=== PATIENT | female | born 1995 | race Caucasian/White ===

== ENCOUNTER 2020-02-15 10:40 | Inpatient (IN) | payer OTHER, SELFPAY ==
[2020-02-15] VITALS (61 sets, daily range): BP systolic 98–139; BP diastolic 57–103; PULSE 62–149; RESP 16; TEMP 36.6–37.1; O2SAT 83–100; BMI 27.6
[2020-02-15] MEDS: AMPICILLIN 2 GM/NS 100 ML 2 GM/100 ML BAG IVPB (13:15)
[2020-02-15] MEDS: LACTATED RINGERS 1,000 ML 125 ML IV CONT ×2 (13:15→17:26)
[2020-02-15 14:39] LABS: Basophils Percent Auto 0.3 % (0.2-1.2); Eosinophils Percent Auto 0.2 % (0-4.4); Hemoglobin 11.8 g/dL (12.0-15.0); Immature Granulocyte Absolute 0.09 K/mm3 (0.00-0.031); Immature Granulocyte Percent A 0.8 % (0-0.5); Lymphocytes Absolute Auto 1.27 K/mm3 (0.9-3.2); Mean Corpuscular HGB Conc 33.7 g/dl (32-36); Mean Corpuscular Hemoglobin 31.9 pg (26-34); Mean Corpuscular Volume 94.6 fl (80-100); Mean Platelet Volume 11.3 fl (7.4-10.4); Monocytes Absolute Auto 0.7 K/mm3 (0.1-0.6); Monocytes Percent Auto 6.4 % (2.6-8.5); Neutrophils Absolute Auto 8.5 K/mm3 (1.3-6.7); Neutrophils Percent Auto 80.3 % (45.5-73.1); Platelet Count Result 189 k/mm3 (150-375); Red Cell Distribution Width 12.6 % (11.5-14.5); White Blood Count 10.6 K/mm3 (4.5-10.0)
--- NOTE | 2020-02-15 17:03 | WPDOBADMIT ---
Obstetrics - Admit Note Admission Note: record reviewed. No pertinent additions to the history and/or any subsequent changes in the physical findings that are not consistent with the expected course of the were found. Pt arrived in labor SVE 5.5/100/-0, AROM moderate amount of clear fluid Additions to the history and/or subsequent changes in the physical findings follow. None.
--- NOTE | 2020-02-15 17:22 | WPDANESEPPF ---
Anes - Initial Pre Proc Eval Procedure: labor epidural Date/Time: 02/15/20 17:22 Surgeon: Melanie Chapman MD Pre Op Diagnosis: labor pain Pre Op Diagnosis: contractions Patient Data Age: 24 Gender: F Height: 1.63 m Weight: 73 kg Last Vital Signs Temp 37.1 C 02/15/20 13:00 Pulse 93 02/15/20 17:21 BP 117/63 02/15/20 17:21 Pulse Ox 100 02/15/20 17:20 Allergies Allergy/AdvReac Type Severity Reaction Status Date / Time No Known Allergies Allergy Verified 02/01/20 13:28 Home Medications Medication Instructions Recorded Confirmed Type PNV cmb#95-ferrous fumarate-FA 1 tablet PO DAILY 02/01/20 02/01/20 History [] Laboratory Tests 02/15/20 02/15/20 02/15/20 13:30 13:30 13:30 WBC 10.6 K/mm3 H K/mm3 (4.5-10.0) RBC 3.70 M/mm3 L M/mm3 (4.2-5.4) Hgb 11.8 g/dL L g/dL (12.0-15.0) Hct 35.0 % L % (37.0-47.0) MCV 94.6 fl fl (80-100) MCH 31.9 pg pg (26-34) MCHC 33.7 g/dl g/dl (32-36) RDW 12.6 % % (11.5-14.5) Plt Count 189 k/mm3 k/mm3 (150-375) MPV 11.3 fl H fl (7.4-10.4) Immature Gran % (Auto) 0.8 % H % (0-0.5) Neut % (Auto) 80.3 % H % (45.5-73.1) Lymph % (Auto) 12.0 % L % (18.3-44.2) [place] % (Auto) 6.4 % % (2.6-8.5) Eos % (Auto) 0.2 % % (0-4.4) Baso % (Auto) 0.3 % % (0.2-1.2) Lymph # (Auto) 1.27 K/mm3 K/mm3 (0.9-3.2) [place] # (Auto) 0.7 K/mm3 H K/mm3 (0.1-0.6) Eos # (Auto) 0.0 K/mm3 K/mm3 (0-0.3) Baso # (Auto) 0.0 K/mm3 K/mm3 (0.0-0.1) Abs Immat Gran (auto) 0.09 K/mm3 H K/mm3 (0.00-0.031) Absolute Neuts (auto) 8.5 K/mm3 H K/mm3 (1.3-6.7) Absolute Nucleated RBC 0.0 K/mm3 K/mm3 (0.0-0.012) Nucleated RBC % 0.0 % % (0.0-0.2) RPR Pending Blood Type O Positive Antibody Screen Negative Patient hx anesthesia problems: none Family hx anesthesia problems: none [facility] Family History Family History Father Pancreas carcinoma Grandparent Pancreas carcinoma Mother Hypertension Social History Social History Smoking status: Never smoker Second hand tobacco smoke exposure: No Substance use: never Spiritual care concerns: No Anes - Eval Final PreProcedure Day of Procedure 02/15/20 17:22 Patient weight: normal Heart: regular rate and rhythm Lungs: clear to auscultation and normal air movement Airway: Mallampati scale Neurological: alert and oriented ASA classification: I Emergent: no Anesthetic plan: proceed Anesthesia type and monitoring: regional epidural and standard monitoring Informed Consent: The patient's anesthetic plan and its attendant risks and benefits were discussed with the patient/family/POA. Questions were solicited and answers provided to the satisfaction of the patient/family/POA.
[2020-02-15] MEDS: AMPICILLIN 1 GM/NS 50 ML 1 GM/50 ML BAG IVPB (17:26)
[2020-02-15] MEDS: OXYTOCIN 30 UNITS/NS 500 ML 30 UNITS/500 ML BAG 999 UNITS IV CONT (19:37)
--- NOTE | 2020-02-15 19:46 | PM.OBPRVD ---
OB - Delivery Note Procedure Delivery date: 02/15/20 Procedure: vaginal delivery Intrapartal events: None Delivery augmentation: rupture of membranes Delivery monitor: external FHT and external uterine Route of delivery: Laceration description: None Delivery repair: vicryl Specimen: No Estimated blood loss (mL): 80 Anesthesia type: Epidural Disposition: other () Baby Date of : 02/15/20 Time of : 19:33 Weeks of gestation at delivery: 37 Weight (pounds): 7 Weight (ounces): 10 presentation: vertex position: Left Occiput Anterior Placenta delivery description: Spontaneous cord vessel description: 3 Vessels score one minute: 8 score five minutes: 9 Narrative: mother and baby skin to skin
[2020-02-15] MEDS: IBUPROFEN 600 MG TABLET PO (20:22)
[2020-02-15] MEDS: OXYTOCIN 30 UNITS/NS 500 ML 30 UNITS/500 ML BAG 125 UNITS IV CONT (20:23)
[2020-02-15] MEDS: WITCH HAZEL 40 PADS 1 PAD TOPICAL (20:49)
[2020-02-15] MEDS: BENZOCAINE 20% AER SPR (*SP) 56 GM CAN 1 SPRAY TOPICAL (20:50)
[2020-02-16] MEDS: IBUPROFEN 600 MG TABLET PO (04:34)
[2020-02-16 05:32] LABS: Hematocrit 31.2 % (37.0-47.0); Hemoglobin 10.5 g/dL (12.0-15.0)
[2020-02-16 06:57] LABS: Rapid Plasma Reagin Non-Reactive (NonReactive)
[2020-02-16 08:00] VITALS: BP 115/75; PULSE 81; RESP 18; TEMP 36.4; O2SAT 100
--- NOTE | 2020-02-16 08:00 | P.PNOB_ITS ---
OB - PN: Subj Subjective Date/time seen: 02/16/20 08:00 OB - PN: Obj Data Labs CBC & Chem 7: 02/16/20 04:33 Labs: Laboratory Results - last 24 hr 02/15/20 02/15/20 02/15/20 13:30 13:30 13:30 WBC 10.6 H RBC 3.70 L Hgb 11.8 L Hct 35.0 L MCV 94.6 MCH 31.9 MCHC 33.7 RDW 12.6 Plt Count 189 MPV 11.3 H Immature Gran % (Auto) 0.8 H Neut % (Auto) 80.3 H Lymph % (Auto) 12.0 L [place] % (Auto) 6.4 Eos % (Auto) 0.2 Baso % (Auto) 0.3 Lymph # (Auto) 1.27 [place] # (Auto) 0.7 H Eos # (Auto) 0.0 Baso # (Auto) 0.0 Abs Immat Gran (auto) 0.09 H Absolute Neuts (auto) 8.5 H Absolute Nucleated RBC 0.0 Nucleated RBC % 0.0 RPR Non-reactive Blood Type O Positive Antibody Screen Negative 02/16/20 04:33 WBC RBC Hgb 10.5 L Hct 31.2 L MCV MCH MCHC RDW Plt Count MPV Immature Gran % (Auto) Neut % (Auto) Lymph % (Auto) [place] % (Auto) Eos % (Auto) Baso % (Auto) Lymph # (Auto) [place] # (Auto) Eos # (Auto) Baso # (Auto) Abs Immat Gran (auto) Absolute Neuts (auto) Absolute Nucleated RBC Nucleated RBC % RPR Blood Type Antibody Screen OB - PN A/P Time Spent With Patient Time: Total time spent is greater than 50% in coordination of care (as documented) at patient's floor/unit and/or counseling patient: Review of Systems Review of Systems: All systems reviewed & are unremarkable except as noted in HPI and below Exam Narrative: Exam Narrative: Fundus firm and vaginal flow controlled. Const: General: comfortable Resp: Effort & Inspection: normal respiratory effort Cardio: Rate: regular rate Psych: Appearance: grossly normal Affect: normal affect Attitude: coop erative Judgement: Good judgement present (Psych)
--- NOTE | 2020-02-16 08:03 | P.PNOB_ITS ---
OB - PN: Subj Subjective Date/time seen: 02/16/20 08:03 OB - PN: Obj Data Labs CBC & Chem 7: 02/16/20 04:33 Labs: Laboratory Results - last 24 hr 02/15/20 02/15/20 02/15/20 13:30 13:30 13:30 WBC 10.6 H RBC 3.70 L Hgb 11.8 L Hct 35.0 L MCV 94.6 MCH 31.9 MCHC 33.7 RDW 12.6 Plt Count 189 MPV 11.3 H Immature Gran % (Auto) 0.8 H Neut % (Auto) 80.3 H Lymph % (Auto) 12.0 L [place] % (Auto) 6.4 Eos % (Auto) 0.2 Baso % (Auto) 0.3 Lymph # (Auto) 1.27 [place] # (Auto) 0.7 H Eos # (Auto) 0.0 Baso # (Auto) 0.0 Abs Immat Gran (auto) 0.09 H Absolute Neuts (auto) 8.5 H Absolute Nucleated RBC 0.0 Nucleated RBC % 0.0 RPR Non-reactive Blood Type O Positive Antibody Screen Negative 02/16/20 04:33 WBC RBC Hgb 10.5 L Hct 31.2 L MCV MCH MCHC RDW Plt Count MPV Immature Gran % (Auto) Neut % (Auto) Lymph % (Auto) [place] % (Auto) Eos % (Auto) Baso % (Auto) Lymph # (Auto) [place] # (Auto) Eos # (Auto) Baso # (Auto) Abs Immat Gran (auto) Absolute Neuts (auto) Absolute Nucleated RBC Nucleated RBC % RPR Blood Type Antibody Screen OB - PN A/P Plan day: 1 Plan: routine care Time Spent With Patient Time: Total time spent is greater than 50% in coordination of care (as documented) at patient's floor/unit and/or counseling patient: Time with patient: less than 15 minutes Review of Systems Review of Systems: All systems reviewed & are unremarkable except as noted in HPI and below Exam Narrative: Exam Narrative: Fundus firm and vaginal flow controlled. Const: General: comfortable Chest: Breast/axilla inspection: normal inspection of the breasts Resp: Effort & Inspection: normal respiratory effort Cardio: Rate: regular rate Psych: Appearance: grossly normal Affect: normal affect Attitude: cooperative Judgement: Good judgement present (Psych)
[2020-02-16] MEDS: MULTIVIT/MIN/PREN/FOL AC/IRON TABLET 1 TAB PO (08:27)
[2020-02-16] MEDS: DOCUSATE SODIUM 100 MG CAPSULE PO (08:27)
[2020-02-16] MEDS: ACETAMINOPHEN 325 MG TABLET 650 MG PO ×2 (08:27→18:27)
--- NOTE | 2020-02-16 09:33 | WPDANLDPN2 ---
Anes-Prog Note L&D Date/Time: 02/16/20 09:33 Comfortable throughout: labor and delivery Neuraxial method: epidural Epidural/Spinal procedure site: clean & non-tender Neuro status: Neuro function grossly intact. Cardiovascular status: normal Respiratory status: normal Airway patency: baseline Mental status: baseline Post-Op hydration status: normal Vital Signs: Last Vital Signs Temp 36.6 C 02/15/20 22:20 Pulse 89 02/15/20 22:20 Resp 16 02/15/20 22:20 BP 119/67 02/15/20 22:20 Pulse Ox 99 02/15/20 22:20 I/O: Intake & Output 02/15/20 02/16/20 02/16/20 23:59 07:59 15:59 Intake Total 1000 Output Total 180 Balance 820 Post-procedural complaints: none Patient feedback: Patient satisfied with anesthetic care.
--- NOTE | 2020-02-16 14:40 | PC.NURSE ---
Consult with pt., mother reports she breastfed first child for 2.5 years without issues. Mother is able to independently latch with appropriate positioning/alignment. She denies any nipple discomfort, is feeding as required and waking to feed if needed. Mother reports is sleepy and does not remember waking first child to feed. Discussed this is 37 weeks and may require to be awaken each feeding and to stimulate while at breast to keep infant awake and nursing for increased intake and maintaining deep latch. Reviewed feeding cues, frequencies, duration of feedings, feeding elimination flow sheet, and signs of adequate intake. Demonstrated stimulation techniques to wake infant for feeding. Nipple care reviewed. Requested mother to call out for RN/LC for observation of next feeding. Instructed feeding should be initiated three hours from start of last feeding or if feeding cues are noted before. Mother voiced understanding of information shared.
[2020-02-16 18:44] VITALS: BP 124/84; PULSE 81; RESP 16; TEMP 36.7
[2020-02-17] MEDS: IBUPROFEN 600 MG TABLET PO (06:15)
[2020-02-17 07:50] VITALS: BP 116/78; PULSE 70; RESP 16; TEMP 37.1; O2SAT 99
--- NOTE | 2020-02-17 09:50 | PC.NURSE ---
Mother is able to independently latch infant with appropriate positioning/alignment. She denies any nipple discomfort, is feeding as required and waking to feed if needed. has had at least 8 effective feedings in the past 24 hours, and is currently meeting outcomes for weight, output, jaundice and feeding frequencies. Mother states she is concerned with Jaundice level, assured mother level is WNL at this time. Suggested to continue to wake to feed every three hours, stimulate to keep effectively feeding while at breast. Mother states she feels confident to continue effective at home. Reviewed transition to breast milk, signs of adequate intake, and engorgement/relief. Instructed to call ICP if intake/output less than required. Reviewed regular medications mother is taking. Information provided per Madhavi. Reviewed community resources on the [facility] website and in the Mom/Baby guide. Information on outpatient services provided. Mother has no further questions at this time.
[2020-02-17] MEDS: DOCUSATE SODIUM 100 MG CAPSULE PO (11:12)
[2020-02-17] MEDS: TETANUS,DIPHTHERIA,AC PERTUSSIS ADULT (0.5 ML) BOOSTRIX IM (11:12)
[2020-02-17] MEDS: MULTIVIT/MIN/PREN/FOL AC/IRON TABLET 1 TAB PO (11:12)
[2020-02-20 11:28] VITALS: BP 122/76; PULSE 82; RESP 20; TEMP 37.2
--- NOTE | 2020-02-20 15:36 | PM.OBDSVD ---
DS: Admitting Diagnosis Admitting Diagnosis Admitting Diagnosis: Encounter for supervision of normal , unspecified, third trimester OB - DS: Summary OB Procedures : None OB Procedures Intrapartum: Spontaneous Vag Delivery OB Procedures: : None Time Spent with Patient Time attestation: Total time spent providing and/or coordinating discharge services: Discharge Plan Discharge Consulting providers: ; Leyda Syed ; Mary Beth Kennedy Discharging Clinician: Leyda Syed Patient Disposition: Home, Self-Care Activity: may shower and may drive after 2 weeks Diet: regular Discharge Instructions: Education: Mom and Baby Guide Given to: Mother Follow-Up: Call your delivering provider's office for an appointment to be seen in: 4 Weeks Mom and baby should come to the [facility] for the follow-up appointment. Appointment Date/Time: February 20, 2020 at 11:00 am What to expect at your follow-up visit: Blood Pressure Check Physical Assessment Call [phone] if you are unable to keep your appointment time. BREAST CARE: 1. Wear a snug supportive bra. 2. For engorgement discomfort: Breast Feeding: A. Apply warm moist washcloths B. Express milk as needed to relieve engorgement C. Wear loose clothing Bottle Feeding: A. May apply ice packs 3. For sore nipples: A. Identify correct latch-on B. Apply warm moist washcloths before and after nursing C. Air dry nipples after nursing D. May apply Lansinoh cream to nipples ABDOMINAL INCISION: (if applicable) 1. Allow incision to air dry 2. Do NOT use lotions for powders on your incision 3. When showering, allow soap and water to run over the incision, but do not wash incision EPISIOTOMY/PERINEAL CARE: 1. Until bleeding stops, use your acli bottle after urinating 2. Change your pad frequently throughout the day 3. You may take sitz baths several times a day (fill your bathtub with warm water and soak for 20 minutes.) Do NOT bathe in the water 4. No tub baths until seen by your physician - You may shower ACTIVITY: 1. Rest as much as possible. 2. Do not exercise or lift anything heavier than your baby (such as laundry or other children.) 3. Avoid stairs or driving as much as possible. 4. Do not put anything into the vagina. No douching, tampons, or sexual activity until seen by physician. NOTIFY PHYSICIAN IF YOU HAVE ANY QUESTIONS OR IF ANY OF THE FOLLOWING SYMPTOMS OCCUR: 1. If your episiotomy or incision becomes red, swollen, or more painful than what you have experienced in the hospital. 2. If your vaginal bleeding becomes foul smelling. 3. If your vaginal bleeding becomes more heavy than a period or if your bleeding changes from pink to bright red. However, you may pass an occasional walnut-sized clot once or twice for the first week . 4. If you experience a sharp, shooting pain in you calves. 5. If you discover a hard, reddened area on your breast or if you experience flu-like symptoms. DIET: 1. Eat regular, well-balanced meals. 2. Drink plenty of fluids daily. If , drink to thirst. Stand Alone Forms: General Discharge Information Follow-up/Referrals: Melanie Chapman MD [Physician] - Discharge Medications: Continued PNV cmb#95-ferrous fumarate-FA [] 28 mg iron- 800 mcg Tablet 1 tablet PO DAILY RF: 0 Date of admission: 02/15/20 10:40 Primary Care Provider: PHYSICIAN NOT ON STAFF,NONSTAFF Admitting Provider: Melanie Chapman Discharge Date/Time: 02/17/20 11:52 Attending physician on admission: Melanie Chapman
== END 2020-02-17 11:52 | disposition home or self-care (01) | DRG 807 ==
LOC: ANHLDR 12:42 → ANHOB2 22:20
PROVIDERS: Advanced Practice Midwife; Admitting Provider Obstetrics & Gynecology; Visit Provider Obstetrics & Gynecology
DX: O99.824 Streptococcus B carrier state complicating childbirth (principal); Z37.0 Single live birth; Z3A.37 37 weeks gestation of pregnancy
CPT/HCPCS: 36415; 85014; 85018; 85025; 86592; 86850; 86900; 86901; 90715; A9270; J0290; J2590; J2795; J7120

== ENCOUNTER 2022-06-11 10:47 | Observation (INO) | payer OTHER, SELFPAY ==
--- NOTE | 2022-06-11 10:47 | OBADM ---
This patient, Raquel Maki, admitted to the OB room OB Post 116 for observation. Patient/family oriented to hospital policies and general routines including ID bracelet, bed and alarms, visiting hours, pain management, procedures, bathroom and other care routines, personal items, smoking policy, room service/diet, and visiting hours. Patient/Family are encouraged to report perceived risks to care and to ask questions if they do not understand what they are told or what they should do.
[2022-06-11 11:24] VITALS: BP 116/71; PULSE 94
[2022-06-11 11:35] VITALS: BMI 26.4
[2022-06-11 11:40] LABS: Add Urine Microscopic? YES; Appearance Urine Clear (Clear); Bacteria Urine Trace /hpf; Bilirubin Urine Negative (Negative); Blood Urine Negative (Negative); Color Urine Yellow (Yellow); Glucose Urine UA Negative (Negative); Ketones Urine Negative (Negative); Leukocyte Esterase Ur 2+ LEU/UL (NEGATIVE); Mucus Urine Rare /lpf; Nitrate Urine Negative (Negative); Protein Urine Negative (Negative); RBC Urine 0-2 /hpf (0-2); Specific Grav Ur 1.009 (1.001-1.035); Squamous Epithelial Cell Urine Few /hpf (Few); Urobilinogen Urine Negative mg/dL (<2.0)
[2022-06-11 13:27] LABS: Fetal Fibronectin Negative
[2022-06-11] MEDS: NIFEdipine 10 MG CAPSULE PO (14:03)
--- NOTE | 2022-06-13 07:38 | PM.OBTRLD ---
OB - Triage/Final Diagnosis Visit Information Date of evaluation: 06/11/22 Reason for evaluation: threatened labor Comments/Additional reasons for admission: I have assessed the risk for this patient, Raquel Maki, and determined that she would benefit from observation care. Evaluation Laboratory results: Laboratory Tests 06/11/22 06/11/22 11:24 12:33 Urine Color Yellow Urine Appearance Clear Urine pH 8.0 Ur Specific [place] 1.009 Urine Protein Negative Urine Glucose (UA) Negative Urine Ketones Negative Ur Blood (Man) Negative Urine Nitrate Negative Urine Bilirubin Negative Urine Urobilinogen Negative Ur Leukocyte Esterase 2+ H Urine RBC 0-2 Urine WBC 7-9 H Ur Squamous Epith Cells Few Urine Bacteria Trace Urine Mucus Rare Fibronectin Negative
== END 2022-06-11 14:04 | disposition home or self-care (01) ==
PROVIDERS: Advanced Practice Midwife; Admitting Provider Obstetrics & Gynecology; Visit Provider Obstetrics & Gynecology
DX: O47.1 False labor at or after 37 completed weeks of gestation (principal); Z3A.33 33 weeks gestation of pregnancy
CPT/HCPCS: 81001; 82731; 87086; A9270; G0378; G0379

== ENCOUNTER 2022-08-08 11:26 | Inpatient (IN) | payer OTHER, SELFPAY ==
[2022-08-08] VITALS (75 sets, daily range): BP systolic 75–169; BP diastolic 47–117; PULSE 70–200; RESP 16–18; TEMP 36.2–37.2; O2SAT 97–100; BMI 28.9
[2022-08-08] MEDS: LACTATED RINGERS 1,000 ML 125 ML IV CONT ×2 (12:13→13:25)
[2022-08-08 12:21] LABS: Basophils Percent Auto 0.2 % (0.2-1.2); Eosinophils Percent Auto 0.2 % (0-4.4); Hematocrit 34.2 % (37.0-47.0); Hemoglobin 11.2 g/dL (12.0-15.0); Immature Granulocyte Absolute 0.06 K/mm3 (0.00-0.031); Immature Granulocyte Percent A 0.5 % (0-0.5); Lymphocytes Absolute Auto 1.11 K/mm3 (0.9-3.2); Lymphocytes Percent Auto 9.2 % (18.3-44.2); Mean Corpuscular HGB Conc 32.7 g/dl (32-36); Mean Corpuscular Hemoglobin 29.9 pg (26-34); Mean Corpuscular Volume 91.4 fl (80-100); Mean Platelet Volume 11.2 fl (7.4-10.4); Monocytes Absolute Auto 0.6 K/mm3 (0.1-0.6); Monocytes Percent Auto 4.7 % (2.6-8.5); Neutrophils Absolute Auto 10.2 K/mm3 (1.3-6.7); Neutrophils Percent Auto 85.2 % (45.5-73.1); Platelet Count Result 180 k/mm3 (150-375); Red Blood Count 3.74 M/mm3 (4.2-5.4); Red Cell Distribution Width 13.4 % (11.5-14.5)
--- NOTE | 2022-08-08 12:51 | WPDANESEPPF ---
Anes - Initial Pre Proc Eval Date/Time: 08/08/22 12:51 Surgeon: Melanie Chapman MD Pre Op Diagnosis: Labor Patient Data Age: 27 Gender: F Height: 1.63 m Weight: 76.5 kg Last Vital Signs Temp 37.2 C 08/08/22 12:18 Pulse 120 H 08/08/22 12:50 BP 120/70 08/08/22 12:50 Pulse Ox 99 08/08/22 12:47 Allergies Allergy/AdvReac Type Severity Reaction Status Date / Time No Known Allergies Allergy Verified 07/22/22 14:30 Home Medications Medication Instructions Recorded Confirmed Type vit no.95-ferrous 1 tablet PO DAILY 02/01/20 02/01/20 History fumarate 28 mg-folic acid 800 mcg tablet () Laboratory Tests 08/08/22 08/08/22 12:04 12:04 WBC 12.0 K/mm3 H K/mm3 (4.5-10.0) RBC 3.74 M/mm3 L M/mm3 (4.2-5.4) Hgb 11.2 g/dL L g/dL (12.0-15.0) Hct 34.2 % L % (37.0-47.0) MCV 91.4 fl fl (80-100) MCH 29.9 pg pg (26-34) MCHC 32.7 g/dl g/dl (32-36) RDW 13.4 % % (11.5-14.5) Plt Count 180 k/mm3 k/mm3 (150-375) MPV 11.2 fl H fl (7.4-10.4) Immature Gran % (Auto) 0.5 % % (0-0.5) Neut % (Auto) 85.2 % H % (45.5-73.1) Lymph % (Auto) 9.2 % L % (18.3-44.2) [place] % (Auto) 4.7 % % (2.6-8.5) Eos % (Auto) 0.2 % % (0-4.4) Baso % (Auto) 0.2 % % (0.2-1.2) Lymph # (Auto) 1.11 K/mm3 K/mm3 (0.9-3.2) [place] # (Auto) 0.6 K/mm3 K/mm3 (0.1-0.6) Eos # (Auto) 0.0 K/mm3 K/mm3 (0-0.3) Baso # (Auto) 0.0 K/mm3 K/mm3 (0.0-0.1) Abs Immat Gran (auto) 0.06 K/mm3 H K/mm3 (0.00-0.031) Absolute Neuts (auto) 10.2 K/mm3 H K/mm3 (1.3-6.7) Absolute Nucleated RBC 0.0 K/mm3 K/mm3 (0.0-0.012) Nucleated RBC % 0.0 % % (0.0-0.2) RPR Pending Patient hx anesthesia problems: none Family hx anesthesia problems: none Results Review: All pre-operative results and documents have been reviewed as part of the pre-operative evaluation. [facility] Family History Family History Father Pancreas carcinoma Grandparent Pancreas carcinoma Mother Hypertension Other Patient's father is Social History Social History Smoking status: Never smoker Second hand tobacco smoke exposure: No Substance use: never Spiritual care concerns: No Anes - Eval Final PreProcedure Day of Procedure 08/08/22 12:51 Patient weight: overweight Heart: regular rate and rhythm Lungs: clear to auscultation Neurological: alert and oriented ASA classification: II Emergent: no Anesthetic plan: proceed Anesthesia type and monitoring: regional epidural and standard monitoring Results Review: All pre-operative results and documents have been reviewed as part of the pre-operative evaluation. Informed Consent: The patient's anesthetic plan and its attendant risks and benefits were discussed with the patient/family/POA. Questions were solicited and answers provided to the satisfaction of the patient/family/POA.
--- NOTE | 2022-08-08 12:56 | LDADM ---
This patient, Raquel Maki, was admitted to Labor/Delivery/Recovery 107 on 08/08/22 at 11:26. Plans for labor, pain management and were discussed with patient. Patient/family oriented to hospital policies and general routines including ID bracelet, bed and alarms, visiting hours, pain management, procedures, bathroom and other care routines, personal items, smoking policy, room service/diet and guest tray routines, infant security routines, and visiting hours. Patient/Family are encouraged to report perceived risks to care and to ask questions if they do not understand what they are told or what they should do. See OBIX for further documentation.
--- NOTE | 2022-08-08 13:02 | P.HP_ITS ---
Obstetrics - Admit Note Admission Note: record reviewed. No pertinent additions to the history and/or any subsequent changes in the physical findings that are not consistent with the expected course of the were found. Pt admitted in labor, SVE 5-6/90/-2, AROM moderate amount of clear odorless fluid, anticipate vaginal d elivery Additions to the history and/or subsequent changes in the physical findings follow. None.
[2022-08-08] MEDS: OXYTOCIN 30 UNITS/NS 500 ML 30 UNITS/500 ML BAG 999 UNITS IV CONT (14:35)
[2022-08-08 14:41] LABS: Rapid Plasma Reagin Non-Reactive (NonReactive)
--- NOTE | 2022-08-08 14:46 | P.PCNOB_ITS ---
OB - Delivery Note Procedure Procedure: with mild shoulder dystocia Intrapartal Events: Other ( shoulder dystocia) Delivery monitor: External FHT and External Uterine Route of delivery: Specimen: No Quantitative Blood Loss (ml): 100 Complications: mild shoulder dystocia, reduced after 45 seconds with suprapubic pressure make the Leticia maneuver [place] Baby Date of : 08/08/22 Time of : 14:29 Weeks of gestation at delivery: 38 Weight (pounds): 8 Weight (ounces): 11 Placenta delivery description: Spontaneous score one minute: 7 score five minutes: 9
[2022-08-08] MEDS: OXYTOCIN 30 UNITS/NS 500 ML 30 UNITS/500 ML BAG 125 UNITS IV CONT (15:07)
--- NOTE | 2022-08-08 17:30 | PC.NURSE ---
Patient transferred to post room #287 via wheelchair. Support person present. Oriented to unit, room, information board, rooming in, admission packet and security measures. Patient verbalizes understanding.
[2022-08-08] MEDS: IBUPROFEN 600 MG TABLET PO (17:58)
[2022-08-08] MEDS: ACETAMINOPHEN 325 MG TABLET 650 MG PO (23:56)
[2022-08-09] VITALS: BP 121/75; PULSE 70; RESP 18; TEMP 36.7
[2022-08-09 05:15] VITALS: BP 110/67; PULSE 79; RESP 18; TEMP 36.3
[2022-08-09 05:35] LABS: Hematocrit 29.9 % (37.0-47.0); Hemoglobin 9.8 g/dL (12.0-15.0)
--- NOTE | 2022-08-09 07:21 | P.PNOB_ITS ---
OB - PN: Subj Subjective Date/time seen: 08/09/22 07:21 Patient comments: no complaints and pain well controlled baby status: doing well and nursing well [place] feeding status: exclusively breast feeding Narrative: would like DC home today OB - PN: Obj Data Labs 08/09/22 05:17 Labs: Laboratory Results - last 24 hr 08/08/22 08/08/22 08/08/22 12:04 12:04 12:04 WBC 12.0 H RBC 3.74 L Hgb 11.2 L Hct 34.2 L MCV 91.4 MCH 29.9 MCHC 32.7 RDW 13.4 Plt Count 180 MPV 11.2 H Immature Gran % (Auto) 0.5 Neut % (Auto) 85.2 H Lymph % (Auto) 9.2 L [place] % (Auto) 4.7 Eos % (Auto) 0.2 Baso % (Auto) 0.2 Lymph # (Auto) 1.11 [place] # (Auto) 0.6 Eos # (Auto) 0.0 Baso # (Auto) 0.0 Abs Immat Gran (auto) 0.06 H Absolute Neuts (auto) 10.2 H Absolute Nucleated RBC 0.0 Nucleated RBC % 0.0 RPR Non-reactive Blood Type O Positive Antibody Screen Negative 08/09/22 05:17 WBC RBC Hgb 9.8 L Hct 29.9 L MCV MCH MCHC RDW Plt Count MPV Immature Gran % (Auto) Neut % (Auto) Lymph % (Auto) [place] % (Auto) Eos % (Auto) Baso % (Auto) Lymph # (Auto) [place] # (Auto) Eos # (Auto) Baso # (Auto) Abs Immat Gran (auto) Absolute Neuts (auto) Absolute Nucleated RBC Nucleated RBC % RPR Blood Type Antibody Screen OB - PN A/P Plan day: 1 Plan: routine care and discharge home Comments: consented for circumcision. Time Spent With Patient Time: Total time spent is greater than 50% in coordination of care (as documented) at patient's floor/unit and/or counseling patient: Time with patient: less than 15 minutes Exam Narrative: NAD abdomen soft, nontender, fundus firm below the umbilicus Extremities nontender, 1+ edema
--- NOTE | 2022-08-09 07:24 | PM.OBDSVD ---
DS: Admitting Diagnosis Discharge Date 08/09/22 Admitting Diagnosis term labor DS: Discharge Diagnosis Discharge Diagnosis (1) , delivered: Code(s): O80 - Encounter for full-term uncomplicated delivery Status: Acute OB - DS: Summary Hospital Course Hospital Course: Raquel was admitted in labor and had an uncomplicated vaginal delivery and course. She was discharged home on PPD 1. OB Procedures : Ultrasound OB Procedures Intrapartum: Spontaneous Vag Delivery OB Procedures: : None Peripartum Data Infant Delivery Method: Natural Vaginal complications: none Status at Discharge Functional status at discharge: independent ambulation Time Spent with Patient Time attestation: Total time spent providing and/or coordinating discharge services: Exam Narrative: NAD abdomen soft, appropriately tender Ext non tender, 1+ edema DS: Data Data Completed and Pending Labs on day of discharge: Labs from last 24 hours 08/09/22 08/08/22 08/08/22 05:17 12:04 12:04 WBC RBC Hgb 9.8 L Hct 29.9 L MCV MCH MCHC RDW Plt Count MPV Immature Gran % (Auto) Neut % (Auto) Lymph % (Auto) [place] % (Auto) Eos % (Auto) Baso % (Auto) Lymph # (Auto) [place] # (Auto) Eos # (Auto) Baso # (Auto) Abs Immat Gran (auto) Absolute Neuts (auto) Absolute Nucleated RBC Nucleated RBC % RPR Non-reactive Blood Type O Positive Antibody Screen Negative 08/08/22 12:04 WBC 12.0 H RBC 3.74 L Hgb 11.2 L Hct 34.2 L MCV 91.4 MCH 29.9 MCHC 32.7 RDW 13.4 Plt Count 180 MPV 11.2 H Immature Gran % (Auto) 0.5 Neut % (Auto) 85.2 H Lymph % (Auto) 9.2 L [place] % (Auto) 4.7 Eos % (Auto) 0.2 Baso % (Auto) 0.2 Lymph # (Auto) 1.11 [place] # (Auto) 0.6 Eos # (Auto) 0.0 Baso # (Auto) 0.0 Abs Immat Gran (auto) 0.06 H Absolute Neuts (auto) 10.2 H Absolute Nucleated RBC 0.0 Nucleated RBC % 0.0 RPR Blood Type Antibody Screen Discharge Plan Discharge Attending physician on discharge: Acuna,Chrissy T. Discharging Clinician: Chrissy Acuna Anticipated Discharge Date/Time: 08/09/22 16:00 Patient Disposition: Home, Self-Care Activity: pelvic rest Diet: regular Patient Instructions: Antibiotic Form Stand Alone Forms: General Discharge Information Follow-up/Referrals: Melanie Chapman MD [Physician] - 4 Weeks Discharge Medications: Continued PNV cmb#95-ferrous fumarate-FA [] 28 mg iron- 800 mcg Tablet 1 tablet PO DAILY Date of admission: 08/08/22 11:26 Primary Care Provider: UNKNOWN,DOCTOR Admitting Provider: Melanie Chapman Attending physician on admission: Melanie Chapman Condition: Stable
[2022-08-09 07:30] VITALS: BP 108/72; PULSE 84; RESP 16; TEMP 36.7; O2SAT 99
[2022-08-09] MEDS: DOCUSATE SODIUM 100 MG CAPSULE PO (10:44)
[2022-08-09] MEDS: POLYSACCHARIDE IRON COMPLEX 150 MG CAPSULE PO (10:44)
[2022-08-09] MEDS: IBUPROFEN 600 MG TABLET PO (10:44)
[2022-08-09] MEDS: MULTIVIT/MIN/PREN/FOL AC/IRON TABLET 1 TAB PO (10:44)
--- NOTE | 2022-08-09 11:24 | PC.NURSE ---
Patient to view the discharge video [facility], The First Two Weeks online. Patient was given the opportunity and encouraged to ask questions. Patient verbalized understanding of information shared and has been given the mother/baby guide for home reference.
[2022-08-09 12:05] VITALS: BP 109/76; PULSE 76; RESP 16; TEMP 36.7; O2SAT 100
== END 2022-08-09 17:18 | disposition home or self-care (01) | DRG 807 ==
LOC: ANHOB2 08-09 13:34 → ANHLDR 08-11 10:44 → ANHOB2 08-11 10:44
PROVIDERS: Admitting Provider Obstetrics & Gynecology; Visit Provider Obstetrics & Gynecology
DX: O66.0 Obstructed labor due to shoulder dystocia (principal); Z37.0 Single live birth; Z3A.38 38 weeks gestation of pregnancy
CPT/HCPCS: 36415; 85014; 85018; 85025; 86592; 86850; 86900; 86901; A9270; J2590; J2795; J7120